=== PATIENT | female | born 1985 | race Caucasian/White ===

== ENCOUNTER 2018-09-07 10:25 | Emergency (ER) | payer MEDICAID, OTHER ==
[2018-09-07 12:23] VITALS: BP 124/80
--- NOTE | 2018-09-07 12:33 | ED Physician Documentation ---
PD HPI LOWER EXT INJURY - Stated complaint Stated Complaint: R FOOT INJ - Chief complaint Chief Complaint: Ext Problem - History obtained from History obtained from: Patient - History of Present Illness PD HPI LOW EXT INJURY LOCATION: Right (She dropped something heavy on her foot last night and has moderate pain in the area of the medial midfoot. No other injuries. She is able to walk and bear weight. She declines pain medication.) Review of Systems Constitutional: reports: Reviewed and negative Cardiac: reports: Reviewed and negative Respiratory: reports: Reviewed and negative PD PAST MEDICAL HISTORY - Past Medical History Psych: None Musculoskeletal: Chronic back pain - Past Surgical History Past Surgical History: Yes /FACULTY ADMINISTRATOR: section - Present Medications Home Medications: Ambulatory Orders Medication Instructions Recorded Confirmed Dextroamphetamine/Amphetamine 30 mg PO DAILY 09/07/18 09/07/18 [Adderall Xr 30 mg Capsule] - Allergies Allergies/Adverse Reactions: Allergies Allergy/AdvReac Type Severity Reaction Status Date / Time No Known Drug Allergies Allergy Verified 09/07/18 10:33 - Social History Does the pt smoke?: Yes Smoking Status: Current every day smoker Does the pt drink ETOH?: No Does the pt have substance abuse?: No - Immunizations Immunizations are current?: Yes PD ED PE NORMAL - Vitals Vital signs reviewed: Yes - General General: Alert and oriented X 3, No acute distress - Extremities Extremities: Other (The right foot is without deformity and is basically nontender she points to the area of the proximal first and second metatarsals as the site of pain.) - Neuro Neuro: Alert and oriented X 3, Normal speech Results - Vitals Vitals: Vital Signs - 24 hr 09/07/18 09/07/18 10:32 12:21 Temperature 36.2 C L 37 C Heart Rate 74 72 Respiratory 18 18 Rate Blood Pressure 119/69 124/80 O2 Saturation 100 100 Oxygen O2 Source Room air - Rads (name of study) 3v R foot Radiology: EMP read contemporaneously (Read as normal, I wondered if there might be an abnormality of the proximal second metatarsal, lateral side on the oblique view and this was reviewed with the on-site radiologist, Dr. Gonzales who felt that it was probably nothing but recommended follow-up x-rays in a week or 2.) Departure - Departure Disposition: 01 Home, Self Care Clinical Impression: Contusion of right foot Qualifiers: Encounter type: initial encounter Qualified Code(s): S90.31XA - Contusion of right foot, initial encounter Condition: Good Record reviewed to determine appropriate education?: Yes Instructions: ED Contusion Foot Follow-Up: [facility] [Provider Group] - Within 1 week Comments: As discussed the x-ray read as normal, but recommend repeat x-ray in a week or 2 either with the orthopedic clinic listed on this form or your primary care physician to reevaluate. Until then you can walk and bear weight. Ibuprofen as needed for pain. Return for new or worsening symptoms.
--- NOTE | 2018-09-07 12:52 | XRAY Report ---
Reason: foot injury Procedure Date: 09/07/2018 Accession Number: [id number] / [id number] Procedure: XR - Foot 3 View RT CPT Code: FULL RESULT: EXAM: RIGHT FOOT RADIOGRAPHY EXAM DATE: 09/07/2018 11:03 AM. CLINICAL HISTORY: Foot injury. COMPARISON: TOE(S) RT 02/09/2013 12:47 PM. TECHNIQUE: 3 views. FINDINGS: Bones: No fracture. No bone lesion. Joints: Normal. No subluxations. Soft Tissues: Normal. No soft tissue swelling. IMPRESSION: No fracture or dislocation RADIA
== END 2018-09-07 12:42 | disposition home or self-care (01) ==
LOC: ED 10:25
DX: S90.31XA Contusion of right foot, initial encounter (principal); W22.8XXA Striking against or struck by other objects, initial encounter; F17.200 Nicotine dependence, unspecified, uncomplicated
CPT/HCPCS: 99283